=== PATIENT | male | born 1955 | race Caucasian/White ===

== ENCOUNTER 2022-01-06 10:37 | Outpatient (REF) | payer MEDICARE, SELFPAY ==
[2022-01-06 11:15] LABS: MANUAL DIFF FLAG NO
[2022-01-06 11:24] LABS: Basophils Absolute Auto 0.1 X10*3/uL (0.0-0.2); Basophils Percent Auto 0.8 % (0-2); Eosinophils Absolute Auto 0.2 X10*3/uL (0.0-0.4); Hemoglobin 13.1 g/dl (14.0-18.0); Imm Gran Abs Auto 0.03 X10*3/uL (0.00-0.03); Imm Gran Pct Auto 0.4 % (0.0-0.4); Lymphocytes Absolute Auto 1.5 X10*3/uL (1.2-4.9); Lymphocytes Percent Auto 19.9 % (20-40); Mean Corpuscular Hemoglobin 28.8 pg (27.0-33.0); Mean Corpuscular Volume 90.1 fL (80.0-98.0); Mean Platelet Volume 9.6 fL (9.4-12.4); Monocytes Absolute Auto 0.6 X10*3/uL (0.1-1.2); Monocytes Percent Auto 7.9 % (2-11); Neutrophils Absolute Auto 5.2 x10*3/uL (2.0-8.3); Platelet Count 228 X10*3/uL (160-400); Red Blood Count 4.55 X10*6/uL (4.60-5.80); Red Cell Distribution Width 13.4 % (11.0-16.0); White Blood Count 7.7 X10*3/uL (4.8-10.8)
[2022-01-06 11:33] LABS: Estimated Average Glucose 128 mg/dL; Hemoglobin A1C 149.9094 umol/L; Hemoglobin A1c % 6.1 %
[2022-01-06 12:04] LABS: Alanine Aminotransferase 20 U/L (0-40); Albumin Level 4.2 g/dL (3.5-5.0); Alkaline Phosphatase 120 U/L (39-117); Anion Gap 11 (12-20); Aspartate Amino Transferase 19 U/L (5-37); Bilirubin Total 0.5 mg/dL (0.0-1.0); Blood Urea Nitrogen 25 mg/dL (9-16); Calcium 9.2 mg/dL (8.4-10.2); Carbon Dioxide 28 mmol/L (22-29); Chloride 105 mmol/L (96-108); Cholesterol 106 mg/dL; Estimated Glomerular Filt Rate > 60; Glucose Random 117 mg/dL (60-115); Potassium 5.3 mmol/L (3.3-5.1); Sodium 139 mmol/L (135-145)
[2022-01-06 12:23] LABS: Creatinine Urine 147.93 mg/dL; Microalbum/Creatinine Ratio Ur 6.7 ug/mg cr
== END 2022-01-06 10:38 | disposition home or self-care (01) ==
LOC: HO.LAB 10:37
PROVIDERS: PCP Internal Medicine; Visit Provider Internal Medicine
DX: Z12.5 Encounter for screening for malignant neoplasm of prostate (principal); I25.10 Atherosclerotic heart disease of native coronary artery without angina pectoris; E78.00 Pure hypercholesterolemia, unspecified; E11.9 Type 2 diabetes mellitus without complications
CPT/HCPCS: 36415; 80053; 82043; 82465; 83036; 84153; 85025

== ENCOUNTER 2022-02-07 12:53 | Outpatient (RCR) | payer MEDICARE, MEDICAID, SELFPAY ==
[2022-02-07 12:15] VITALS: BP 110/64; BP 136/80; BMI 27.7
--- NOTE | 2022-02-07 14:44 | MHC.CR.ITI ---
[address] [phone] F: [phone] Please see additional notes from [facility] Initial Assessment/ITP Cardiac Rehab Initial Assessment/ITP Start: 02/04/22 11:50 Freq: Status: Active Protocol: Activity Type Activity Date Activity User E-sign Co-sign Detail Recorded Client Recorded Date Recorded By Document 02/07/22 12:15 SARAH [id number] 02/07/22 12:20 SARAH 02/07/22 12:15 Cardiac Rehab ITP Initial [Excercise] -Automotive Quality Manager Required No -Preferred Language Greek -Number of sessions approved 36 -Diagnosis CABG Z95.1 -Other Diagnosis HTN, Hyperlipideia, CAD, DM II -Comments hx of deprerssion, anxiety and insomnia [Functional Assessment] -6 Min Walk (distance in ft) 1,425 -Stress Test (Mode) walk -METS Achieved 3.07 -Resting HR 85 -Resting BP 110/64 -Resting SpO2 98 -Exercise HR 106 -Exercise BP 136/80 -Exercise SpO2 99 -RPE 11 -Dyspnea No -ECG Summary SR -Comments states has chronic back discomfort affecting his ability to exercise/walk comfortably [Pre Rehab] -Pre Rehab Home Exercise Yes -Mode walk -Exercise Minutes/Day 20 bid -Exercise Days/Week 7 -Intensity moderate -Comments states walks indoor when weather is too hot -Risk Stratification: Intermediate Functional Risk Participants capacity < 5-6 METs,Mild to moderate depressed LV function (EF 31 -49%) -Fall Risk No -Assistive Devices None -Comments lightheaded when changing position too quickly [Exercise Plan] [Intervention] -Exercise Prescription NuStep, Recumbent Bike, Recumbent Elliptical, Treadmill,UBE, Upright Bike, Weights -Duration Intensity 36 Sessions -Frequency 2-3x/week -Angina with Exercise No [Exercise Education] -Exercise Education Exercise orientation, Exercise safety ,Home exercise, RPE,Self pulse checking,Signs and symptoms, Warmup/cooldown -Date Completed 02/07/22 -Initials ja -Education Summary uses automated bp cuff and SpO2 monitor for pulse checks [Exercise Goals] -Exercise Most Days of the Week Yes -Exercise 30-45 mins/day Yes -Target HR Range +20 - +30 beats above resting -Increase METS next 30 days 0.5-1.0 METS Every two weeks -METs goal by Discharge 5 METS -Comments 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 would like to become more fit . [Nutrition] [Hyperlipidemia] -Hyperlipidemia Yes -Lipid Draw Date 01/06/22 -Total Cholesterol 106 [Diabetes] -Diabetes Yes -Diabetes Type 2 -Are lab results available Yes -HbA1C 6.10 -Date 01/06/22 -Monitors Glucose Yes -Frequency bid [Weight Management] -Height 6 ft -Weight 93 kg -BMI 27.7 -Recommended Diet low fat, no salt -Comments given Dash diet pamphlet [Drug/Alchohol Use] -Drug/Alcohol Use No: denies alcohol -Comment did drink hard liquor (vodka) when taking care of failing parents as stress management tool . Discussed alcohol as a depressant and counter to his needs when feeling depressed. agrees and states no longer drinks at all. [Nutritional Screen (Rate Your Plate)] -Score 61 -Interpretation of Score making many healthy choices -Comments has lost 10 lbs since hospitalization (Dischgd december) [Nutrition Plan] [Intervention] -Referral(s) Not Applicable [Nutrition Education] -Nutrition Education Diabetes and excercise, Hydration, Nutrition, Reading food labels,Signs and symptoms of Hypo/Hyper- glycemia -Date Completed 02/07/22 -Initials ja -Education Summary sister provides meal prep. given pamphlet re: food labels , as well as dash diet handout. [Nutrition Goals] -Goals BMI < 25, Fasting BG 80- 120 mg/dL,HDL > 40,LDL < 70, Total CHOL < 200 -Weight goal 195 [Psycho/Social] -Stage of Change Maintenance -Learning Barriers None -Occupation Retired -Job Description [employer] -PHQ9 Score 7 -Interpretation of Score at risk for depression -Comments states gets depressed (more so in the morning) as day goes on becomes occupied with other things and depression lessens. -Patient Self-Reports Depression Yes -Family Support sister+ -Comments lives with sister and her family until he is more able to care for himself. (has an apartment) [Psycho/Social Plan] [Intervention] -Referral(s) No consult needed [Psycho/Social Education] -Psycho/Social Education Advanced directives, Coping techniques, Depression and CAD,Positive support system, Relaxation Techniques, Reviewed PHQ9 Score w/pt, Sexuality and CAD,Signs and symptoms of CAD ,Stress management -Date Completed 02/07/22 -Initials ja -Education Summary hx of insomnia was taking remeron but trying to minimize use. started on zoloft daily relaxes by walking, reading, watching tv, keep moving [Psycho/Social Goals] -Goals Improve depression screen score, Improve depressive symptoms,Manage /reduce stress, Not Applicable [Other Core Comp] [Risk Factors] -Risk Factors Diabetes, Dyslipidemia, Hypertension, Physical Inactivity [Hypertension] -Hypertention Yes -Resting BP: 110/64 [Tobacco Use] -Patient Tobacco Use Status Never used Tobacco -Exposure to secondhand smoke No [Heart Failure] -Heart Failure No [Other Core Comp Plan] [Intervention] -Referral(s) Recognizing Stressors,Self Monitoring BP, Stress Management [Other Core Comp Education] -Other Core Comp Education HF Disease progression, Medication compliance,Risk factor modifications, RPD Scale/SOB management, Understanding hypertension -Date Completed 02/07/22 -Initials ja -Education Summary states compliant with medication regimen [Other Core Comp Goals] -Goals Improve dyspnea ,Manage risk factors, Medication compliance, Resting BP < 130/80 [Medication Plan] [Intervention] -Medications Acetaminophen 975 mg q6h prn pain ASA 81 mg daily Atorvastatin 80 mg daily Clopidogrel 75 mg po daily Furosemide 40 mg daily Metformin 500 mg daily Metformin ER 50 mg daily Olanzepine 2.5 mg daily zoloft 50 mg daily -Compliance Patient reports compliance w/ prescribed meds [Medication Education] -Education Importance of medication compliance, Medication purpose, Medication schedule, Medication side effects -Date Completed 02/07/22 -Initials ja -Education Summary states compliant with medication regimen [Medication Goals] -Goals Adherence to medication compliance -Comments states compliant with medication regimen [Treatment Times] -Rehab Services with ECG Monitor -Time 1300 -End Time 1162
[2022-03-08 07:09] VITALS: BP 104/68; BMI 28.8
--- NOTE | 2022-03-08 07:31 | MHC.CR.ITR ---
[address] [phone] F: [phone] Please see additional notes from [facility] Reassessment/ITP Cardiac Rehab Reassessment/ITP Start: 02/04/22 11:50 Freq: Status: Active Protocol: Activity Type Activity Date Activity User E-sign Co-sign Detail Recorded Client Recorded Date Recorded By Document 03/08/22 07:09 SARAH [id number] 03/08/22 07:31 SARAH 03/08/22 07:09 Cardiac Rehab Reassessment/ITP [Exercise] -Sharepoint Application Developer Required No -Preferred Language Polish -Progress Note Type 30-Day Note -Total Sessions Attended 5 -Comments hx of deprerssion, anxiety and insomnia has increased intensity and duration of workout with guidance, supervision and encouragement. [Functional Assessment] -ECG Summary SR -Home-Based Rehab Pt approved for home-based exercise -Comments takes daily walks (slow paced) for short periods of time due to back discomfort . -Fall Risk No [Exercise Plan] [Intervention] -Exercise Prescription NuStep, Recumbent Bike, Recumbent Elliptical, Treadmill,UBE, Upright Bike, Weights -Duration Intensity 36 Sessions -Exercise Minutes/Day 30 -Exercise Days/Week 5 -Angina with Exercise No -Peak METs 5 [Home Exercise] -Mode walks -Frequency bid -Intensity light -Comments states due to back pain walks at slow pace for 20+ minutes bid. 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 would like to become more fit . [Nutrition] [Hyperlipidemia] -Are lab results available Yes -Hyperlipidemia Yes -Medication Changes No -Comments 02/16/2022 Cholesterol- 116 Triglycerides- 117 LDL- 56 HDL- 37 [Diabetes] -Diabetes Yes -Diabetes Type 2 -HbA1C 6.20 -Date 02/16/22 [Weight Management] -Weight 96.5 kg -BMI 28.8 -Comments given Dash diet pamphlet [Drug/Alchohol Use] -Drug/Alcohol Use No: denies alcohol use -Change in Use No -Comment did drink hard liquor (vodka) when taking care of failing parents as stress management tool . Discussed alcohol as a depressant and counter to his needs when feeling depressed. agrees and states no longer drinks at all. [Nutrition Plan] [Intervention] -Attended Nutrition Brochures [Nutrition Education] -Nutrition Education Diabetes and excercise, Hydration, Nutrition, Reading food labels,Signs and symptoms of Hypo/Hyper- glycemia -Date Completed 02/07/22 -Initials ja -Education Summary sister provides meal prep. given pamphlet re: food labels , as well as dash diet handout. denies questions or concerns at this time. [Nutrition Goals] -Goals BMI < 25, Fasting BG 80- 120 mg/dL,HDL > 40,LDL < 70, Total CHOL < 200 -Weight goal 195 [Psycho/Social] -Stage of Change Maintenance -Occupation Retired -PHQ9 Score 7 -Interpretation of Score at risk for depression -Plan of Action/Follow-up PCP faxed results of PHQ9 at time of admission. -Patient Self-Reports Depression Yes -Comments states gets depressed (more so in the morning) as day goes on becomes occupied with other things and depression lessens. [Psycho/Social Plan] [Intervention] -Attended No consult needed [Psycho/Social Education] -Psycho/Social Education Advanced directives, Coping techniques, Depression and CAD,Positive support system, Relaxation Techniques, Reviewed PHQ9 Score w/pt, Sexuality and CAD,Signs and symptoms of CAD ,Stress management -Date Completed 02/07/22 -Initials ja -Education Summary hx of insomnia was taking remeron but trying to minimize use. started on zoloft daily relaxes by walking, reading, watching tv, keep moving [Psycho/Social Goals] -Goals Improve depression screen score, Improve depressive symptoms,Manage /reduce stress, Not Applicable -Comments affect remains flat. [Other Core Comp] [Hypertension] -Hypertention Yes -Resting BP: 104/68 -Medication Changes No [Tobacco Use] -Change in Use No [Heart Failure] -Heart Failure No [Other Core Comp Plan] [Intervention] -Attended Recognizing Stressors,Self Monitoring BP, Stress Management [Other Core Comp Education] -Other Core Comp Education HF Disease progression, Medication compliance,Risk factor modifications, RPD Scale/SOB management, Understanding hypertension -Date Completed 02/07/22 -Initials ja -Education Summary states compliant with medication regimen [Other Core Comp Goals] -Goals Improve dyspnea ,Manage risk factors, Medication compliance, Resting BP < 130/80 [Medication Plan] [Intervention] -Medications Acetaminophen 975 mg q6h prn pain ASA 81 mg daily Atorvastatin 80 mg daily Clopidogrel 75 mg po daily Furosemide 40 mg daily Metformin 500 mg daily Metformin ER 50 mg daily Olanzepine 2.5 mg daily zoloft 50 mg daily -Compliance Patient reports compliance w/ prescribed meds [Medication Education] -Education Importance of medication compliance, Medication purpose, Medication schedule, Medication side effects -Date Completed 02/07/22 -Initials ja -Education Summary states compliant with medication regimen [Medication Goals] -Goals Adherence to medication compliance -Comments states compliant with medication regimen
[2022-04-06 07:29] VITALS: BP 104/68; BMI 28.8
--- NOTE | 2022-04-06 07:32 | MHC.CR.ITR ---
[address] [phone] F: [phone] Please see additional notes from [facility] Reassessment/ITP Cardiac Rehab Reassessment/ITP Start: 02/04/22 11:50 Freq: Status: Active Protocol: Activity Type Activity Date Activity User E-sign Co-sign Detail Recorded Client Recorded Date Recorded By Document 04/06/22 07:29 SARAH Desktop 04/06/22 07:31 SARAH 04/06/22 07:29 Cardiac Rehab Reassessment/ITP [Exercise] -Rn Behavioral Health Required No -Preferred Language Latvian -Progress Note Type 60-Day Note -Total Sessions Attended 5 -Comments has not attended since 02/21/22. states has been having back pain and plans to return to [facility] when able. hx of deprerssion, anxiety and insomnia has increased intensity and duration of workout with guidance, supervision and encouragement. [Functional Assessment] -ECG Summary SR -Home-Based Rehab Pt approved for home-based exercise -Comments takes daily walks (slow paced) for short periods of time due to back discomfort . -Fall Risk No [Exercise Plan] [Intervention] -Exercise Prescription NuStep, Recumbent Bike, Recumbent Elliptical, Treadmill,UBE, Upright Bike, Weights -Duration Intensity 36 Sessions -Exercise Minutes/Day 30 -Exercise Days/Week 5 -Angina with Exercise No -Peak METs 5 [Home Exercise] -Mode walks -Frequency bid -Intensity light -Comments states due to back pain walks at slow pace for 20+ minutes bid. 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 would like to become more fit . [Nutrition] [Hyperlipidemia] -Are lab results available Yes -Hyperlipidemia Yes -Medication Changes No -Comments 02/16/2022 Cholesterol- 116 Triglycerides- 117 LDL- 56 HDL- 37 [Diabetes] -Diabetes Yes -Diabetes Type 2 -HbA1C 6.20 -Date 02/16/22 [Weight Management] -Weight 96.5 kg -BMI 28.8 -Comments given Dash diet pamphlet [Drug/Alchohol Use] -Drug/Alcohol Use No: denies alcohol use -Change in Use No -Comment did drink hard liquor (vodka) when taking care of failing parents as stress management tool . Discussed alcohol as a depressant and counter to his needs when feeling depressed. agrees and states no longer drinks at all. [Nutrition Plan] [Intervention] -Attended Nutrition Brochures [Nutrition Education] -Nutrition Education Diabetes and excercise, Hydration, Nutrition, Reading food labels,Signs and symptoms of Hypo/Hyper- glycemia -Date Completed 02/07/22 -Initials ja -Education Summary sister provides meal prep. given pamphlet re: food labels , as well as dash diet handout. denies questions or concerns at this time. [Nutrition Goals] -Goals BMI < 25, Fasting BG 80- 120 mg/dL,HDL > 40,LDL < 70, Total CHOL < 200 -Weight goal 195 [Psycho/Social] -Stage of Change Maintenance -Occupation Retired -PHQ9 Score 7 -Interpretation of Score at risk for depression -Plan of Action/Follow-up PCP faxed results of PHQ9 at time of admission. -Patient Self-Reports Depression Yes -Comments states gets depressed (more so in the morning) as day goes on becomes occupied with other things and depression lessens. [Psycho/Social Plan] [Intervention] -Attended No consult needed [Psycho/Social Education] -Psycho/Social Education Advanced directives, Coping techniques, Depression and CAD,Positive support system, Relaxation Techniques, Reviewed PHQ9 Score w/pt, Sexuality and CAD,Signs and symptoms of CAD ,Stress management -Date Completed 02/07/22 -Initials ja -Education Summary hx of insomnia was taking remeron but trying to minimize use. started on zoloft daily relaxes by walking, reading, watching tv, keep moving [Psycho/Social Goals] -Goals Improve depression screen score, Improve depressive symptoms,Manage /reduce stress, Not Applicable -Comments affect remains flat. [Other Core Comp] [Hypertension] -Hypertention Yes -Resting BP: 104/68 -Medication Changes No [Tobacco Use] -Change in Use No [Heart Failure] -Heart Failure No [Other Core Comp Plan] [Intervention] -Attended Recognizing Stressors,Self Monitoring BP, Stress Management [Other Core Comp Education] -Other Core Comp Education HF Disease progression, Medication compliance,Risk factor modifications, RPD Scale/SOB management, Understanding hypertension -Date Completed 02/07/22 -Initials ja -Education Summary states compliant with medication regimen [Other Core Comp Goals] -Goals Improve dyspnea ,Manage risk factors, Medication compliance, Resting BP < 130/80 [Medication Plan] [Intervention] -Medications Acetaminophen 975 mg q6h prn pain ASA 81 mg daily Atorvastatin 80 mg daily Clopidogrel 75 mg po daily Furosemide 40 mg daily Metformin 500 mg daily Metformin ER 50 mg daily Olanzepine 2.5 mg daily zoloft 50 mg daily -Compliance Patient reports compliance w/ prescribed meds [Medication Education] -Education Importance of medication compliance, Medication purpose, Medication schedule, Medication side effects -Date Completed 02/07/22 -Initials ja -Education Summary states compliant with medication regimen [Medication Goals] -Goals Adherence to medication compliance -Comments states compliant with medication regimen
[2022-05-03 07:00] VITALS: BP 104/68; BMI 28.8
[2022-05-24 08:47] VITALS: BP 104/68; BMI 28.8
--- NOTE | 2022-05-24 08:48 | MHC.CR.ITR ---
[address] [phone] F: [phone] Please see additional notes from [facility] Reassessment/ITP Cardiac Rehab Reassessment/ITP Start: 02/04/22 11:50 Freq: Status: Active Protocol: Activity Type Activity Date Activity User E-sign Co-sign Detail Recorded Client Recorded Date Recorded By Document 05/24/22 08:47 SARAH [id number] 05/24/22 08:48 SARAH 05/24/22 08:47 Cardiac Rehab Reassessment/ITP [Exercise] -Manager Marketing Communications Required No -Preferred Language Lao -Progress Note Type 90-Day Note -Total Sessions Attended 5 -Comments has not attended [facility] since 02/21/22. states has been having back pain and plans to return to [facility] when able. Wellness call placed 04/27/22 stated he continues to be experiencing back pain (has been seen by PCP) and plans to return to [facility] when pain is manageable., hx of depression, anxiety and insomnia has increased intensity and duration of workout with guidance, supervision and encouragement. [Functional Assessment] -ECG Summary SR -Home-Based Rehab Pt approved for home-based exercise -Comments takes daily walks (slow paced) for short periods of time due to back discomfort . -Fall Risk No [Exercise Plan] [Intervention] -Exercise Prescription NuStep, Recumbent Bike, Recumbent Elliptical, Treadmill,UBE, Upright Bike, Weights -Duration Intensity 36 Sessions -Exercise Minutes/Day 30 -Exercise Days/Week 5 -Angina with Exercise No -Peak METs 5 [Home Exercise] -Mode walks -Frequency bid -Intensity light -Comments states due to back pain walks at slow pace for 20+ minutes bid. 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 would like to become more fit . [Nutrition] [Hyperlipidemia] -Are lab results available Yes -Hyperlipidemia Yes -Medication Changes No -Comments 02/16/2022 Cholesterol- 116 Triglycerides- 117 LDL- 56 HDL- 37 [Diabetes] -Diabetes Yes -Diabetes Type 2 -HbA1C 6.20 -Date 02/16/22 [Weight Management] -Weight 96.5 kg -BMI 28.8 -Comments given Dash diet pamphlet [Drug/Alchohol Use] -Drug/Alcohol Use No: denies alcohol use -Change in Use No -Comment did drink hard liquor (vodka) when taking care of failing parents as stress management tool . Discussed alcohol as a depressant and counter to his needs when feeling depressed. agrees and states no longer drinks at all. [Nutrition Plan] [Intervention] -Attended Nutrition Brochures [Nutrition Education] -Nutrition Education Diabetes and excercise, Hydration, Nutrition, Reading food labels,Signs and symptoms of Hypo/Hyper- glycemia -Date Completed 02/07/22 -Initials ja -Education Summary sister provides meal prep. given pamphlet re: food labels , as well as dash diet handout. denies questions or concerns at this time. [Nutrition Goals] -Goals BMI < 25, Fasting BG 80- 120 mg/dL,HDL > 40,LDL < 70, Total CHOL < 200 -Weight goal 195 [Psycho/Social] -Stage of Change Maintenance -Occupation Retired -PHQ9 Score 7 -Interpretation of Score at risk for depression -Plan of Action/Follow-up PCP faxed results of PHQ9 at time of admission. -Patient Self-Reports Depression Yes -Comments states gets depressed (more so in the morning) as day goes on becomes occupied with other things and depression lessens. [Psycho/Social Plan] [Intervention] -Attended No consult needed [Psycho/Social Education] -Psycho/Social Education Advanced directives, Coping techniques, Depression and CAD,Positive support system, Relaxation Techniques, Reviewed PHQ9 Score w/pt, Sexuality and CAD,Signs and symptoms of CAD ,Stress management -Date Completed 02/07/22 -Initials ja -Education Summary hx of insomnia was taking remeron but trying to minimize use. started on zoloft daily relaxes by walking, reading, watching tv, keep moving [Psycho/Social Goals] -Goals Improve depression screen score, Improve depressive symptoms,Manage /reduce stress, Not Applicable -Comments affect remains flat. [Other Core Comp] [Hypertension] -Hypertention Yes -Resting BP: 104/68 -Medication Changes No [Tobacco Use] -Change in Use No [Heart Failure] -Heart Failure No [Other Core Comp Plan] [Intervention] -Attended Recognizing Stressors,Self Monitoring BP, Stress Management [Other Core Comp Education] -Other Core Comp Education HF Disease progression, Medication compliance,Risk factor modifications, RPD Scale/SOB management, Understanding hypertension -Date Completed 02/07/22 -Initials ja -Education Summary states compliant with medication regimen [Other Core Comp Goals] -Goals Improve dyspnea ,Manage risk factors, Medication compliance, Resting BP < 130/80 [Medication Plan] [Intervention] -Medications Acetaminophen 975 mg q6h prn pain ASA 81 mg daily Atorvastatin 80 mg daily Clopidogrel 75 mg po daily Furosemide 40 mg daily Metformin 500 mg daily Metformin ER 50 mg daily Olanzepine 2.5 mg daily zoloft 50 mg daily -Compliance Patient reports compliance w/ prescribed meds [Medication Education] -Education Importance of medication compliance, Medication purpose, Medication schedule, Medication side effects -Date Completed 02/07/22 -Initials ja -Education Summary states compliant with medication regimen [Medication Goals] -Goals Adherence to medication compliance -Comments states compliant with medication regimen
[2022-06-28 08:26] VITALS: BP 104/68; BMI 28.8
--- NOTE | 2022-06-28 08:34 | MHC.CR.ITR ---
[address] [phone] F: [phone] Please see additional notes from [facility] Reassessment/ITP Cardiac Rehab Reassessment/ITP Start: 02/04/22 11:50 Freq: Status: Active Protocol: Activity Type Activity Date Activity User E-sign Co-sign Detail Recorded Client Recorded Date Recorded By Document 06/28/22 08:26 SARAH [id number] 06/28/22 08:27 SARAH 06/28/22 08:26 Cardiac Rehab Reassessment/ITP [Exercise] -Head Well Puller Required No -Preferred Language Polish -Total Sessions Attended 5 -Comments This is Anthony 's 150 day progress note. has not attended RC since 02/21/22. states has been having back pain and plans to return to CR when able. Wellness call placed AND stated he continues to be experiencing back pain (has been seen by PCP) and plans to return to CR when pain is manageable., hx of depression, anxiety and insomnia has increased intensity and duration of workout with guidance, supervision and encouragement. [Functional Assessment] -ECG Summary SR -Home-Based Rehab Pt approved for home-based exercise -Comments takes daily walks (slow paced) for short periods of time due to back discomfort . -Fall Risk No [Exercise Plan] [Intervention] -Exercise Prescription NuStep, Recumbent Bike, Recumbent Elliptical, Treadmill,UBE, Upright Bike, Weights -Duration Intensity 36 Sessions -Exercise Minutes/Day 30 -Exercise Days/Week 5 -Angina with Exercise No -Peak METs 5 [Home Exercise] -Mode walks -Frequency bid -Intensity light -Comments states due to back pain walks at slow pace for 20+ minutes bid. 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 would like to become more fit . [Nutrition] [Hyperlipidemia] -Are lab results available Yes -Hyperlipidemia Yes -Medication Changes No -Comments 02/16/2022 Cholesterol- 116 Triglycerides- 117 LDL- 56 HDL- 37 [Diabetes] -Diabetes Yes -Diabetes Type 2 -HbA1C 6.20 -Date 02/16/22 [Weight Management] -Weight 96.5 kg -BMI 28.8 -Comments given Dash diet pamphlet [Drug/Alchohol Use] -Drug/Alcohol Use No: denies alcohol use -Change in Use No -Comment did drink hard liquor (vodka) when taking care of failing parents as stress management tool . Discussed alcohol as a depressant and counter to his needs when feeling depressed. agrees and states no longer drinks at all. [Nutrition Plan] [Intervention] -Attended Nutrition Brochures [Nutrition Education] -Nutrition Education Diabetes and excercise, Hydration, Nutrition, Reading food labels,Signs and symptoms of Hypo/Hyper- glycemia -Date Completed 02/07/22 -Initials ja -Education Summary sister provides meal prep. given pamphlet re: food labels , as well as dash diet handout. denies questions or concerns at this time. [Nutrition Goals] -Goals BMI < 25, Fasting BG 80- 120 mg/dL,HDL > 40,LDL < 70, Total CHOL < 200 -Weight goal 195 [Psycho/Social] -Stage of Change Maintenance -Occupation Retired -PHQ9 Score 7 -Interpretation of Score at risk for depression -Plan of Action/Follow-up PCP faxed results of PHQ9 at time of admission. -Patient Self-Reports Depression Yes -Comments states gets depressed (more so in the morning) as day goes on becomes occupied with other things and depression lessens. [Psycho/Social Plan] [Intervention] -Attended No consult needed [Psycho/Social Education] -Psycho/Social Education Advanced directives, Coping techniques, Depression and CAD,Positive support system, Relaxation Techniques, Reviewed PHQ9 Score w/pt, Sexuality and CAD,Signs and symptoms of CAD ,Stress management -Date Completed 02/07/22 -Initials ja -Education Summary hx of insomnia was taking remeron but trying to minimize use. started on zoloft daily relaxes by walking, reading, watching tv, keep moving [Psycho/Social Goals] -Goals Improve depression screen score, Improve depressive symptoms,Manage /reduce stress, Not Applicable -Comments affect remains flat. [Other Core Comp] [Hypertension] -Hypertention Yes -Resting BP: 104/68 -Medication Changes No [Tobacco Use] -Change in Use No [Heart Failure] -Heart Failure No [Other Core Comp Plan] [Intervention] -Attended Recognizing Stressors,Self Monitoring BP, Stress Management [Other Core Comp Education] -Other Core Comp Education HF Disease progression, Medication compliance,Risk factor modifications, RPD Scale/SOB management, Understanding hypertension -Date Completed 02/07/22 -Initials ja -Education Summary states compliant with medication regimen [Other Core Comp Goals] -Goals Improve dyspnea ,Manage risk factors, Medication compliance, Resting BP < 130/80 [Medication Plan] [Intervention] -Medications Acetaminophen 975 mg q6h prn pain ASA 81 mg daily Atorvastatin 80 mg daily Clopidogrel 75 mg po daily Furosemide 40 mg daily Metformin 500 mg daily Metformin ER 50 mg daily Olanzepine 2.5 mg daily zoloft 50 mg daily -Compliance Patient reports compliance w/ prescribed meds [Medication Education] -Education Importance of medication compliance, Medication purpose, Medication schedule, Medication side effects -Date Completed 02/07/22 -Initials ja -Education Summary states compliant with medication regimen [Medication Goals] -Goals Adherence to medication compliance -Comments states compliant with medication regimen
[2022-08-02 09:43] VITALS: BP 104/68; BMI 28.8
--- NOTE | 2022-08-02 09:43 | MHC.CR.ITR ---
[address] [phone] F: [phone] Please see additional notes from [facility] Cardiac Rehab Reassessment/ITP Cardiac Rehab Reassessment/ITP Start: 02/04/22 11:50 Freq: Status: Active Protocol: Activity Type Activity Date Activity User E-sign Co-sign Detail Recorded Client Recorded Date Recorded By Document 08/02/22 09:43 SARAH [id number] 08/02/22 09:43 SARAH 08/02/22 09:43 Cardiac Rehab Reassessment/ITP [Exercise] -Tire Finisher Required No -Preferred Language Turkmen -Total Sessions Attended 5 -Comments This is Anthony 's 180 day progress note. has not attended RC since 02/21/22. states has been having back pain and plans to return to CR when able. Wellness call placed AND stated he continues to be experiencing back pain (has been seen by PCP) and plans to return to CR when pain is manageable., hx of depression, anxiety and insomnia has increased intensity and duration of workout with guidance, supervision and encouragement. [Functional Assessment] -ECG Summary SR -Home-Based Rehab Pt approved for home-based exercise -Comments takes daily walks (slow paced) for short periods of time due to back discomfort . -Fall Risk No [Exercise Plan] [Intervention] -Exercise Prescription NuStep, Recumbent Bike, Recumbent Elliptical, Treadmill,UBE, Upright Bike, Weights -Duration Intensity 36 Sessions -Exercise Minutes/Day 30 -Exercise Days/Week 5 -Angina with Exercise No -Peak METs 5 [Home Exercise] -Mode walks -Frequency bid -Intensity light -Comments states due to back pain walks at slow pace for 20+ minutes bid. 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 would like to become more fit . [Nutrition] [Hyperlipidemia] -Are lab results available Yes -Hyperlipidemia Yes -Medication Changes No -Comments 02/16/2022 Cholesterol- 116 Triglycerides- 117 LDL- 56 HDL- 37 [Diabetes] -Diabetes Yes -Diabetes Type 2 -HbA1C 6.20 -Date 02/16/22 [Weight Management] -Weight 96.5 kg -BMI 28.8 -Comments given Dash diet pamphlet [Drug/Alchohol Use] -Drug/Alcohol Use No: denies alcohol use -Change in Use No -Comment did drink hard liquor (vodka) when taking care of failing parents as stress management tool . Discussed alcohol as a depressant and counter to his needs when feeling depressed. agrees and states no longer drinks at all. [Nutrition Plan] [Intervention] -Attended Nutrition Brochures [Nutrition Education] -Nutrition Education Diabetes and excercise, Hydration, Nutrition, Reading food labels,Signs and symptoms of Hypo/Hyper- glycemia -Date Completed 02/07/22 -Initials ja -Education Summary sister provides meal prep. given pamphlet re: food labels , as well as dash diet handout. denies questions or concerns at this time. [Nutrition Goals] -Goals BMI < 25, Fasting BG 80- 120 mg/dL,HDL > 40,LDL < 70, Total CHOL < 200 -Weight goal 195 [Psycho/Social] -Stage of Change Maintenance -Occupation Retired -PHQ9 Score 7 -Interpretation of Score at risk for depression -Plan of Action/Follow-up PCP faxed results of PHQ9 at time of admission. -Patient Self-Reports Depression Yes -Comments states gets depressed (more so in the morning) as day goes on becomes occupied with other things and depression lessens. [Psycho/Social Plan] [Intervention] -Attended No consult needed [Psycho/Social Education] -Psycho/Social Education Advanced directives, Coping techniques, Depression and CAD,Positive support system, Relaxation Techniques, Reviewed PHQ9 Score w/pt, Sexuality and CAD,Signs and symptoms of CAD ,Stress management -Date Completed 02/07/22 -Initials ja -Education Summary hx of insomnia was taking remeron but trying to minimize use. started on zoloft daily relaxes by walking, reading, watching tv, keep moving [Psycho/Social Goals] -Goals Improve depression screen score, Improve depressive symptoms,Manage /reduce stress, Not Applicable -Comments affect remains flat. [Other Core Comp] [Hypertension] -Hypertention Yes -Resting BP: 104/68 -Medication Changes No [Tobacco Use] -Change in Use No [Heart Failure] -Heart Failure No [Other Core Comp Plan] [Intervention] -Attended Recognizing Stressors,Self Monitoring BP, Stress Management [Other Core Comp Education] -Other Core Comp Education HF Disease progression, Medication compliance,Risk factor modifications, RPD Scale/SOB management, Understanding hypertension -Date Completed 02/07/22 -Initials ja -Education Summary states compliant with medication regimen [Other Core Comp Goals] -Goals Improve dyspnea ,Manage risk factors, Medication compliance, Resting BP < 130/80 [Medication Plan] [Intervention] -Medications Acetaminophen 975 mg q6h prn pain ASA 81 mg daily Atorvastatin 80 mg daily Clopidogrel 75 mg po daily Furosemide 40 mg daily Metformin 500 mg daily Metformin ER 50 mg daily Olanzepine 2.5 mg daily zoloft 50 mg daily -Compliance Patient reports compliance w/ prescribed meds [Medication Education] -Education Importance of medication compliance, Medication purpose, Medication schedule, Medication side effects -Date Completed 02/07/22 -Initials ja -Education Summary states compliant with medication regimen [Medication Goals] -Goals Adherence to medication compliance -Comments states compliant with medication regimen
[2022-08-30 09:21] VITALS: BP 104/68; BMI 28.8
--- NOTE | 2022-08-30 09:22 | MHC.CR.ITD ---
[address] [phone] F: [phone] Please see additional notes from [facility] Cardiac Rehab Discharge/ITP Cardiac Rehab Discharge/ITP Start: 02/04/22 11:50 Freq: Status: Active Protocol: Activity Type Activity Date Activity User E-sign Co-sign Detail Recorded Client Recorded Date Recorded By Document 08/30/22 09:21 SARAH Desktop 08/30/22 09:22 SARAH 08/30/22 09:21 Cardiac Rehab Discharge/ITP [Exercise] -Pediatric Anesthesiologist Required No -Preferred Language Cambodian -Total Sessions Attended 5 -Comments This is Anthony 's Discharge progress note. has not attended RC since 02/21/22. states has been having back pain and plans to return to CR when able. Wellness call placed AND stated he continues to be experiencing back pain (has been seen by PCP) and plans to return to CR when pain is manageable., hx of depression, anxiety and insomnia has increased intensity and duration of workout with guidance, supervision and encouragement. [Functional Assessment] -ECG Summary SR -Fall Risk No [Exercise Plan] [Intervention] -Exercise Prescription NuStep, Recumbent Bike, Recumbent Elliptical, Treadmill,UBE, Upright Bike, Weights -Duration Intensity 36 Sessions -Exercise Minutes/Day 30 -Exercise Days/Week 5 -Angina with Exercise No -Peak METs 5 [Home Exercise] -Mode walks -Frequency bid -Intensity light -Comments states due to back pain walks at slow pace for 20+ minutes bid. 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 would like to become more fit . [Nutrition] [Hyperlipidemia] -Are lab results available Yes -Hyperlipidemia Yes -Lipid Draw Date 01/06/22 -Total Cholesterol 106 -Comments 02/16/2022 Cholesterol- 116 Triglycerides- 117 LDL- 56 HDL- 37 [Diabetes] -Diabetes Yes -Diabetes Type 2 -HbA1C 6.20 -Date 02/16/22 [Weight Management] -Weight 96.5 kg -BMI 28.8 -Comments given Dash diet pamphlet [Drug/Alchohol Use] -Drug/Alcohol Use No: denies alcohol use -Change in Use No -Comment did drink hard liquor (vodka) when taking care of failing parents as stress management tool . Discussed alcohol as a depressant and counter to his needs when feeling depressed. agrees and states no longer drinks at all. [Nutrition Plan] [Intervention] -Attended Nutrition Brochures [Nutrition Education] -Nutrition Education Diabetes and excercise, Hydration, Nutrition, Reading food labels,Signs and symptoms of Hypo/Hyper- glycemia -Date Completed 02/07/22 -Initials ja -Education Summary sister provides meal prep. given pamphlet re: food labels , as well as dash diet handout. denies questions or concerns at this time. [Nutrition Goals] -Goals BMI < 25, Fasting BG 80- 120 mg/dL,HDL > 40,LDL < 70, Total CHOL < 200 -Weight goal 195 [Psycho/Social] -Stage of Change Maintenance -Occupation Retired -PHQ9 Score 7 -Interpretation of Score at risk for depression -Plan of Action/Follow-up PCP faxed results of PHQ9 at time of admission. -Patient Self-Reports Depression Yes -Comments states gets depressed (more so in the morning) as day goes on becomes occupied with other things and depression lessens. [Psycho/Social Plan] [Intervention] -Attended No consult needed [Psycho/Social Education] -Psycho/Social Education Advanced directives, Coping techniques, Depression and CAD,Positive support system, Relaxation Techniques, Reviewed PHQ9 Score w/pt, Sexuality and CAD,Signs and symptoms of CAD ,Stress management -Date Completed 02/07/22 -Initials ja -Education Summary hx of insomnia was taking remeron but trying to minimize use. started on zoloft daily relaxes by walking, reading, watching tv, keep moving [Psycho/Social Goals] -Goals Improve depression screen score, Improve depressive symptoms,Manage /reduce stress, Not Applicable -Comments affect remains flat. [Other Core Comp] [Hypertension] -Hypertention Yes -Resting BP: 104/68 -Medication Changes No [Tobacco Use] -Change in Use No [Other Core Comp Plan] [Intervention] -Attended Recognizing Stressors,Self Monitoring BP, Stress Management [Other Core Comp Education] -Other Core Comp Education HF Disease progression, Medication compliance,Risk factor modifications, RPD Scale/SOB management, Understanding hypertension -Date Completed 02/07/22 -Initials ja -Education Summary states compliant with medication regimen [Other Core Comp Goals] -Goals Improve dyspnea ,Manage risk factors, Medication compliance, Resting BP < 130/80 [Medication Plan] [Intervention] -Medications Acetaminophen 975 mg q6h prn pain ASA 81 mg daily Atorvastatin 80 mg daily Clopidogrel 75 mg po daily Furosemide 40 mg daily Metformin 500 mg daily Metformin ER 50 mg daily Olanzepine 2.5 mg daily zoloft 50 mg daily -Compliance Patient reports compliance w/ prescribed meds [Medication Education] -Education Importance of medication compliance, Medication purpose, Medication schedule, Medication side effects -Date Completed 02/07/22 -Initials ja -Education Summary states compliant with medication regimen [Medication Goals] -Goals Adherence to medication compliance -Comments states compliant with medication regimen
== END 2022-09-09 10:35 | disposition home or self-care (01) ==
LOC: HO.CR 12:53
PROVIDERS: PCP Internal Medicine; Visit Provider Nurse Practitioner Family
DX: Z95.1 Presence of aortocoronary bypass graft (principal)
CPT/HCPCS: 93798

== ENCOUNTER 2022-02-16 11:40 | Outpatient (REF) | payer MEDICARE, MEDICAID, SELFPAY ==
[2022-02-16 12:01] LABS: MANUAL DIFF FLAG NO
[2022-02-16 12:26] LABS: Basophils Absolute Auto 0.1 X10*3/uL (0.0-0.2); Basophils Percent Auto 0.7 % (0-2); Eosinophils Absolute Auto 0.2 X10*3/uL (0.0-0.4); Hematocrit 43.5 % (42.0-52.0); Imm Gran Abs Auto 0.03 X10*3/uL (0.00-0.03); Imm Gran Pct Auto 0.4 % (0.0-0.4); Lymphocytes Absolute Auto 1.6 X10*3/uL (1.2-4.9); Lymphocytes Percent Auto 21.5 % (20-40); Mean Corpuscular HGB Conc 32.2 g/dl (31.0-36.0); Mean Corpuscular Hemoglobin 27.8 pg (27.0-33.0); Mean Corpuscular Volume 86.5 fL (80.0-98.0); Mean Platelet Volume 9.4 fL (9.4-12.4); Monocytes Absolute Auto 0.5 X10*3/uL (0.1-1.2); Monocytes Percent Auto 6.6 % (2-11); Neutrophils Absolute Auto 4.9 x10*3/uL (2.0-8.3); Neutrophils Percent Auto 67.8 % (45-73); Platelet Count 262 X10*3/uL (160-400); Red Blood Count 5.03 X10*6/uL (4.60-5.80); Red Cell Distribution Width 13.2 % (11.0-16.0); White Blood Count 7.2 X10*3/uL (4.8-10.8)
[2022-02-16 12:35] LABS: Estimated Average Glucose 131 mg/dL; Hemoglobin A1c % 6.2 %
[2022-02-16 12:59] LABS: Alanine Aminotransferase 28 U/L (0-40); Albumin Level 4.3 g/dL (3.5-5.0); Alkaline Phosphatase 108 U/L (39-117); Anion Gap 17 (12-20); Aspartate Amino Transferase 24 U/L (5-37); Bilirubin Total 0.8 mg/dL (0.0-1.0); Blood Urea Nitrogen 17 mg/dL (9-16); Calcium 9.4 mg/dL (8.4-10.2); Carbon Dioxide 29 mmol/L (22-29); Chloride 100 mmol/L (96-108); Estimated Glomerular Filt Rate > 60; Glucose Random 107 mg/dL (60-115); Potassium 4.9 mmol/L (3.3-5.1); Sodium 141 mmol/L (135-145); Total Protein 7.3 g/dL (6.5-8.0)
[2022-02-16 13:00] LABS: B Type Natriuretic Peptide 40 pg/mL (<100)
[2022-02-16 13:02] LABS: Cholesterol 116 mg/dL; HDL Cholesterol 37 mg/dL; LDL Cholesterol Calculated 56 mg/dl; Triglycerides 117 mg/dL
== END 2022-02-16 11:41 | disposition home or self-care (01) ==
LOC: HO.LAB 11:40
PROVIDERS: Absent Provider Internal Medicine Cardiovascular Disease; PCP Internal Medicine; Visit Provider Internal Medicine
DX: I25.10 Atherosclerotic heart disease of native coronary artery without angina pectoris (principal); I10 Essential (primary) hypertension; E11.9 Type 2 diabetes mellitus without complications
CPT/HCPCS: 36415; 80053; 80061; 83036; 83880; 85025

== ENCOUNTER 2022-03-08 12:32 | Outpatient (REF) | payer MEDICARE, MEDICAID, SELFPAY ==
[2022-02-07 12:15] VITALS: BP 110/64; BP 136/80
--- NOTE | ~2022-03-08 | XR_ITS ---
EXAMINATION: XR THORACIC SPINE CLINICAL INFORMATION: Mid thoracic back pain of several months' duration, without injury. COMPARISON: None TECHNIQUE: Frontal, lateral and swimmer's views of the thoracic spine were obtained. FINDINGS: There is mild bony demineralization. There is a slight thoracic dextroscoliosis. The thoracic disc spaces are relatively well-maintained. No acute fracture or spondylolisthesis is seen. There is multi-level mild to moderate thoracic spondylosis. The posterior elements are intact. The paravertebral soft tissues are unremarkable. XR/XR thoracic spine 3V IMPRESSION: 1. No acute fracture or spondylolisthesis is seen. 2. The thoracic disc spaces are relatively well-maintained. 3. There is multi-level mild to moderate thoracic spondylosis.
[2022-03-08 07:09] VITALS: BP 104/68; BMI 28.8
== END 2022-03-08 12:33 | disposition home or self-care (01) ==
LOC: HO.XRAY 12:32
PROVIDERS: PCP Internal Medicine; Visit Provider Internal Medicine
DX: M54.6 Pain in thoracic spine (principal)
CPT/HCPCS: 72072

== ENCOUNTER 2022-05-19 11:24 | Outpatient (REF) | payer MEDICARE, MEDICAID, SELFPAY ==
[2022-02-07 12:15] VITALS: BP 110/64; BP 136/80
[2022-05-19 11:37] LABS: MANUAL DIFF FLAG NO
[2022-05-19 12:33] LABS: Basophils Percent Auto 0.3 % (0-2); Eosinophils Absolute Auto 0.1 X10*3/uL (0.0-0.4); Eosinophils Percent Auto 1.1 % (0-4); Hematocrit 42.5 % (42.0-52.0); Imm Gran Abs Auto 0.02 X10*3/uL (0.00-0.03); Imm Gran Pct Auto 0.2 % (0.0-0.4); Lymphocytes Absolute Auto 1.9 X10*3/uL (1.2-4.9); Lymphocytes Percent Auto 21.5 % (20-40); Mean Corpuscular HGB Conc 32.9 g/dl (31.0-36.0); Mean Corpuscular Hemoglobin 28.4 pg (27.0-33.0); Mean Corpuscular Volume 86.2 fL (80.0-98.0); Mean Platelet Volume 10.3 fL (9.4-12.4); Monocytes Absolute Auto 0.5 X10*3/uL (0.1-1.2); Monocytes Percent Auto 5.9 % (2-11); Neutrophils Absolute Auto 6.3 x10*3/uL (2.0-8.3); Platelet Count 224 X10*3/uL (160-400); Red Blood Count 4.93 X10*6/uL (4.60-5.80); Red Cell Distribution Width 14.6 % (11.0-16.0); White Blood Count 8.8 X10*3/uL (4.8-10.8)
[2022-05-19 12:42] LABS: Appearance Urine Clear; Color Urine Yellow; Glucose Urine UA Negative (Negative); Leukocyte Esterase Urine Negative (Negative); Nitrite Urine Negative (Negative); PH 5.5 (5.0-9.0); Specific Gravity - Urine <= 1.005 (1.005-1.025); Urine Blood Negative (Negative); Urine Ketones Negative (Negative); Urine Protein Negative (Neg-Trace)
[2022-05-19 12:47] LABS: Bacteria Urine None Seen (None Seen); Hyaline Casts Urine 0-2 /LPF (0-2); RBC Urine 0-2 /HPF (0-2); Squamous Epithelial Cell Urine 0-2 /HPF (0-2); WBC Urine 0-5 /HPF (0-5)
[2022-05-19 12:54] LABS: Estimated Average Glucose 146 mg/dL; Hemoglobin A1c % 6.7 %
[2022-05-19 13:12] LABS: Alanine Aminotransferase 21 U/L (0-40); Albumin Level 4.4 g/dL (3.5-5.0); Alkaline Phosphatase 85 U/L (39-117); Anion Gap 16 (12-20); Aspartate Amino Transferase 22 U/L (5-37); Blood Urea Nitrogen 22 mg/dL (9-16); Calcium 9.5 mg/dL (8.4-10.2); Carbon Dioxide 26 mmol/L (22-29); Chloride 100 mmol/L (96-108); Cholesterol 122 mg/dL; Estimated Glomerular Filt Rate > 60; Glucose Fasting 114 mg/dL (60-99); HDL Cholesterol 39 mg/dL; LDL Cholesterol Calculated 59 mg/dl; Potassium 4.2 mmol/L (3.3-5.1); Sodium 138 mmol/L (135-145); Total Protein 7.1 g/dL (6.5-8.0); Triglycerides 123 mg/dL
[2022-05-19 13:34] LABS: Prostate Specific Antigen Scr 0.33 ng/mL (<0.05-4.0)
[2022-05-19 16:32] LABS: Vitamin D 25-OH Total 21.7 ng/mL (>30)
[2022-05-19 17:35] LABS: Creatinine Urine 28.84 mg/dL; Microalbumin Urine < 5.0 mg/L
== END 2022-05-19 11:25 | disposition home or self-care (01) ==
LOC: HO.LAB 11:24
PROVIDERS: PCP Internal Medicine; Visit Provider Internal Medicine
DX: Z00.00 Encounter for general adult medical examination without abnormal findings (principal); Z12.5 Encounter for screening for malignant neoplasm of prostate; I25.10 Atherosclerotic heart disease of native coronary artery without angina pectoris; E11.9 Type 2 diabetes mellitus without complications
CPT/HCPCS: 36415; 80053; 80061; 81001; 82043; 82306; 83036; 84153; 85025

== ENCOUNTER 2023-04-27 10:39 | Outpatient (REF) | payer MEDICARE, MEDICAID, SELFPAY ==
[2023-04-27 10:53] LABS: MANUAL DIFF FLAG NO
[2023-04-27 11:54] LABS: Basophils Percent Auto 0.4 % (0-2); Eosinophils Absolute Auto 0.1 X10*3/uL (0.0-0.4); Eosinophils Percent Auto 1.2 % (0-4); Hematocrit 42.6 % (42.0-52.0); Hemoglobin 14.3 g/dl (14.0-18.0); Imm Gran Abs Auto 0.03 X10*3/uL (0.00-0.03); Imm Gran Pct Auto 0.4 % (0.0-0.4); Lymphocytes Absolute Auto 1.6 X10*3/uL (1.2-4.9); Lymphocytes Percent Auto 23.3 % (20-40); Mean Corpuscular HGB Conc 33.6 g/dl (31.0-36.0); Mean Corpuscular Hemoglobin 30.3 pg (27.0-33.0); Mean Corpuscular Volume 90.3 fL (80.0-98.0); Mean Platelet Volume 9.6 fL (9.4-12.4); Monocytes Absolute Auto 0.4 X10*3/uL (0.1-1.2); Monocytes Percent Auto 6.4 % (2-11); Neutrophils Absolute Auto 4.6 x10*3/uL (2.0-8.3); Neutrophils Percent Auto 68.3 % (45-73); Platelet Count 218 X10*3/uL (160-400); Red Blood Count 4.72 X10*6/uL (4.60-5.80); Red Cell Distribution Width 12.3 % (11.0-16.0); White Blood Count 6.7 X10*3/uL (4.8-10.8)
[2023-04-27 12:01] LABS: Estimated Average Glucose 128 mg/dL; Hemoglobin A1c % 6.1 % (<6.0)
[2023-04-27 12:29] LABS: Alanine Aminotransferase 23 U/L (0-40); Albumin Level 4.3 g/dL (3.5-5.0); Alkaline Phosphatase 66 U/L (39-117); Anion Gap 13 (12-20); Aspartate Amino Transferase 23 U/L (5-37); Bilirubin Total 1.6 mg/dL (0.0-1.0); Blood Urea Nitrogen 15 mg/dL (9-16); Calcium 9.4 mg/dL (8.4-10.2); Carbon Dioxide 30 mmol/L (22-29); Chloride 103 mmol/L (96-108); Cholesterol 92 mg/dL (<200); Creatinine Urine 199.25 mg/dL; Estimated Glomerular Filt Rate > 60; Glucose Fasting 98 mg/dL (60-99); HDL Cholesterol 31 mg/dL (>40); LDL Cholesterol Calculated 39 mg/dL (<100); Microalbum/Creatinine Ratio Ur 3.5 ug/mg cr (<30); Potassium 3.9 mmol/L (3.3-5.1); Sodium 142 mmol/L (135-145); Triglycerides 112 mg/dL (<150)
[2023-04-27 12:44] LABS: Prostate Specific Antigen Scr 0.44 ng/mL (<0.05-4.0)
== END 2023-04-27 10:40 | disposition home or self-care (01) ==
LOC: HO.LAB 10:39
PROVIDERS: PCP Internal Medicine; Visit Provider Internal Medicine
DX: I25.10 Atherosclerotic heart disease of native coronary artery without angina pectoris (principal); E78.00 Pure hypercholesterolemia, unspecified; E11.9 Type 2 diabetes mellitus without complications; R35.1 Nocturia; Z12.5 Encounter for screening for malignant neoplasm of prostate
CPT/HCPCS: 36415; 80053; 80061; 82043; 82570; 83036; 84153; 85025

== ENCOUNTER 2023-07-26 16:11 | Emergency (ER) | payer MEDICARE, MEDICAID, SELFPAY ==
--- NOTE | ~2023-07-26 | US_ITS ---
EXAMINATION: US VENOUS ULTRASOUND WITH DOPPLER LOWER EXTREMITY, BILATERAL CLINICAL INFORMATION: Bilateral lower extremity pain COMPARISON: None available. TECHNIQUE: Ultrasound of the deep veins is performed from the hip to the calf with compression sonography and color and pulse Doppler assessment. Spectral analysis with color-flow imaging is performed. FINDINGS: RIGHT: There is normal venous compression and respiratory variation and augmented flow. The visualized common femoral vein, superficial femoral vein, profunda femoral vein, popliteal vein, and the trifurcation region shows no evidence of deep venous thrombosis. There is no significant popliteal fossa cyst. LEFT: There is normal venous compression and respiratory variation and augmented flow. The visualized common femoral vein, superficial femoral vein, profunda femoral vein, popliteal vein, and the trifurcation region shows no evidence of deep venous thrombosis. There is no significant popliteal fossa cyst. If the patient's symptoms persist, followup ultrasound in 5 days 7 days might be of value to exclude proximal propagation from a non-visualized calf vein. US/US venous duplex LE BI IMPRESSION: No DVT demonstrated in either lower extremity.
--- NOTE | ~2023-07-26 | US_ITS ---
EXAMINATION: NONINVASIVE ASSESSMENT OF THE ARTERIES OF BOTH LOWER EXTREMITIES INCLUDING BILATERAL LOWER EXTREMITY DUPLEX. CLINICAL INFORMATION: Cold foot after exercise, good pulses today COMPARISON: None TECHNIQUE: duplex Doppler techniques with wave form analysis and measurement of velocities in the common femoral, profunda femoral, superficial femoral, popliteal, tibial and peroneal arteries. The study was performed only at rest. FINDINGS: RIGHT LEG Common femoral artery: 156 cm/s, Multiphasic Profunda femoris artery: 89 cm/s, Multiphasic Superficial femoral artery (proximal): 106 cm/s, Multiphasic Superficial femoral artery (mid): 71 cm/s, Multiphasic Superficial femoral artery (distal): 67 cm/s, Multiphasic Proximal Popliteal artery: 70 cm/s, Multiphasic Mid posterior tibial artery: 61 cm/s, Multiphasic LEFT LEG: Common femoral artery: 105 cm/s, Multiphasic Profunda femoris artery: 137 cm/s, Multiphasic Superficial femoral artery (proximal): 93 cm/s, Multiphasic Superficial femoral artery (mid): 85 cm/s, Multiphasic Superficial femoral artery (distal): 63 cm/s, Multiphasic Proximal Popliteal artery: 81 cm/s, Multiphasic Mid posterior tibial artery: 76 cm/s, Multiphasic Peroneal artery: 76 cm/s, Multiphasic US/US arterial duplex LE BI IMPRESSION: No hemodynamically significant stenosis in bilateral lower extremities.
--- NOTE | 2023-07-26 16:19 | ED_ITS ---
HPI - Extremity Injury (Lower) General Chief Complaint: General Medical Stated Complaint: bilat foot pain Time Seen by Provider: 07/26/23 20:09 Source: patient, RN notes reviewed and old records reviewed Mode of arrival: ambulatory Limitations: no limitations History of Present Illness HPI Narrative: 67-year-old male past medical history significant for coronary artery disease presents for evaluation of foot pain. He states that he generally has pain at the right big toe when walking. He states that occasionally it is swollen. He states ?sometimes it is cool to the touch. Denies any history of DVT or PE Denies any risk factors for DVT/PE Currently he states that he has no significant pain He reports that he has dry cracked skin to the bottom of his left foot Denies any trauma to the legs Related Data Allergies Allergy/AdvReac Type Severity Reaction Status Date / Time No Known Allergies Allergy Verified 07/26/23 16:20 Review of Systems 2 Constitutional: Constitutional: Denies chills and Denies fever(s) Cardiovascular: Cardiovascular: Denies chest pain and Denies dyspnea Respiratory: Respiratory: Denies cough and Denies dyspnea Gastrointestinal: Gastrointestinal: Denies abdominal pain Musculoskeletal: Musculoskeletal: Denies back pain, Reports arthralgias and Denies joint swelling Integumentary/Breasts: Skin/Breast: Denies rash PMFSH Social History Social History Patient Tobacco Use Status: Never used Tobacco Advance Directives: No Advance Directives Information Provided: No Physical Exam 2 Vital Signs: Vital Signs: Last Vital Signs Temp 97.2 F 07/26/23 16:20 Pulse 62 07/26/23 20:20 Resp 18 07/26/23 16:20 BP 98/56 L 07/26/23 20:20 Pulse Ox 98 07/26/23 20:20 O2 Del Method Room Air 07/26/23 20:20 BMI result Body Mass Index 28.0 Const: General: healthy appearing, comfortable, no acute distress, alert and awake Nutritional Appearance: well nourished Orientation/consciousness: p atient oriented x3 HEENT: Head: Yes normocephalic and Yes atraumatic Eyes: Eyelids: Yes eyelids normal Conjunctivae: conjunctivae normal S clerae: sclerae normal Corneas: corneas normal Pupils: Equal, round and reactive pupils present EOM: EOMs intact bilaterally Neck: Neck: Yes full ROM Resp: Effort & Inspection: normal respiratory effort, able to speak in complete sentences and not labored GI: Inspection: No distended Palpation (GI): Soft to palpation, not firm, nontender, no guarding and not rigid Skin: Other: Patient has no obvious deformity to lower extremities bilaterally. No calf pain or tenderness, no significant edema. DP and PT pulses 2+ and equal. Capillary refill intact to both lower extremities General skin exam: elasticity normal Neuro: General: patient oriented x3 Cranial nerves: Yes Equal, round and reactive pupils present and Yes Bilaterally intact EOM present Cognition (Neuro): normal cognition Course Course Course Narrative: RME: 67 year-old M w/ PMHx CAD s/p bypass, pre-DM, presenting to the ED c/o bilateral foot pain > right w/blisters/swelling, & RLE cold x1 month gradually worsening. Takes ASA. States sx are worse after exercise b/l LE warm to touch, appropriate color, no pitting edema, pulse WNL. No calf ttp Labs, Arterial/venous US ordered Full HPI, ROS and PE to be performed by primary ED provider. Medical Decision Making Medical Decision Making [facility] Narrative: Patient complains of foot pain, will feet. He had workup in triage that was significant for labs, venous ultrasound to rule out DVT as well as arterial ultrasound right lower extremity as the patient reports symptoms are worse. All his results do not show any acute, concerning findings. Patient has no significant vascular stenosis Differential Diagnosis Differential Diagnoses: The differential diagnosis associated with the presentation includes Leg edema Raynaud's phenomenon Leg pain DVT Atherosclerosis Lab Data [facility] Lab Attestation statement: I reviewed the patient's lab results. No leukocytosis. The patient's labs are technically significant for a mild anemia with a hemoglobin of 13.9 and hematocrit of 40.9. However these numbers are consistent with his baseline. No significant chemistry abnormality 07/26/23 17:04 07/26/23 17:04 Labs: Lab Results 07/26/23 Range/Units 17:04 WBC 7.1 (4.8-10.8) X10*3/uL RBC 4.59 L (4.60-5.80) X10*6/uL Hgb 13.9 L (14.0-18.0) g/dl Hct 40.9 L (42.0-52.0) % MCV 89.1 (80.0-98.0) fL MCH 30.3 (27.0-33.0) pg MCHC 34.0 (31.0-36.0) g/dl RDW 12.4 (11.0-16.0) % Plt Count 233 (160-400) X10*3/uL MPV 9.6 (9.4-12.4) fL Immature Gran % (Auto) 0.3 (0.0-0.4) % Neut % (Auto) 62.5 (45-73) % Lymph % (Auto) 28.1 (20-40) % [place] % (Auto) 7.7 (2-11) % Eos % (Auto) 1.0 (0-4) % Baso % (Auto) 0.4 (0-2) % Lymph # (Auto) 2.0 (1.2-4.9) X10*3/uL [place] # (Auto) 0.5 (0.1-1.2) X10*3/uL Eos # (Auto) 0.1 (0.0-0.4) X10*3/uL Baso # (Auto) 0.0 (0.0-0.2) X10*3/uL Abs Immat Gran (auto) 0.02 (0.00-0.03) X10*3/uL Absolute Neuts (auto) 4.4 (2.0-8.3) x10*3/uL Absolute Nucleated RBC 0.000 (0.0-0.012) X10*3/uL Nucleated RBC % (auto) 0.0 (0.0-0.2) /100WBC PT 12.9 (11.1-13.3) SEC INR 1.1 (0.9-1.1) Sodium 139 (135-145) mmol/L Potassium 3.9 (3.3-5.1) mmol/L Chloride 103 (96-108) mmol/L Carbon Dioxide 26 (22-29) mmol/L Anion Gap 14 (12-20) BUN 19 H (9-16) mg/dL Creatinine 0.86 (0.5-1.4) mg/dL Estim Creat Clear Calc 98.9 Estimated GFR > 60 Random Glucose 96 (60-115) mg/dL Calcium 9.6 (8.4-10.2) mg/dL Total Bilirubin 1.1 H (0.0-1.0) mg/dL Direct Bilirubin 0.4 (0.0-0.5) mg/dL AST 24 (5-37) U/L ALT 21 (0-40) U/L Alkaline Phosphatase 72 (39-117) U/L B-Natriuretic Peptide 56 (<100) pg/mL Total Protein 6.9 (6.5-8.0) g/dL Albumin 4.3 (3.5-5.0) g/dL Radiology Impression Discussion of test interpretation with radiology: I have reviewed the radiologist's reading. (No evidence of DVT. No evidence of critical stenosis to the right lower extremity) Discharge Plan Discharge Clinical Impression: Acute foot pain Patient Disposition: Home, Self-Care Instructions: Arthralgia (ED) Additional Instructions: Your workup in the emergency room today was reassuring. This concludes your blood work, venous and arterial ultrasounds of the lower extremities. Follow-up with your primary doctor for the foot pain. Return for new or worsening symptoms Interventions: ED Discharge Assessment Last Done: 07/26/23 21:19 Discharge Date/Time: 07/26/23 21:20
[2023-07-26 16:20] VITALS: BP 107/56; PULSE 73; RESP 18; TEMP 36.2; O2SAT 99; BMI 28.0
[2023-07-26 17:08] LABS: MANUAL DIFF FLAG NO
[2023-07-26 17:12] LABS: Basophils Percent Auto 0.4 % (0-2); Eosinophils Absolute Auto 0.1 X10*3/uL (0.0-0.4); Hematocrit 40.9 % (42.0-52.0); Hemoglobin 13.9 g/dl (14.0-18.0); Imm Gran Abs Auto 0.02 X10*3/uL (0.00-0.03); Imm Gran Pct Auto 0.3 % (0.0-0.4); Lymphocytes Percent Auto 28.1 % (20-40); Mean Corpuscular Hemoglobin 30.3 pg (27.0-33.0); Mean Corpuscular Volume 89.1 fL (80.0-98.0); Mean Platelet Volume 9.6 fL (9.4-12.4); Monocytes Absolute Auto 0.5 X10*3/uL (0.1-1.2); Monocytes Percent Auto 7.7 % (2-11); Neutrophils Absolute Auto 4.4 x10*3/uL (2.0-8.3); Neutrophils Percent Auto 62.5 % (45-73); Platelet Count 233 X10*3/uL (160-400); Red Blood Count 4.59 X10*6/uL (4.60-5.80); Red Cell Distribution Width 12.4 % (11.0-16.0); White Blood Count 7.1 X10*3/uL (4.8-10.8)
[2023-07-26 17:21] LABS: INTERNATIONAL NORM RATIO 1.1 (0.9-1.1); Prothrombin Time 12.9 SEC (11.1-13.3)
[2023-07-26 17:23] LABS: Alanine Aminotransferase 21 U/L (0-40); Albumin Level 4.3 g/dL (3.5-5.0); Alkaline Phosphatase 72 U/L (39-117); Anion Gap 14 (12-20); Aspartate Amino Transferase 24 U/L (5-37); Bilirubin Direct 0.4 mg/dL (0.0-0.5); Bilirubin Total 1.1 mg/dL (0.0-1.0); Blood Urea Nitrogen 19 mg/dL (9-16); Calcium 9.6 mg/dL (8.4-10.2); Carbon Dioxide 26 mmol/L (22-29); Chloride 103 mmol/L (96-108); Creatinine Clr Calc Pharmacy 98.9; Estimated Glomerular Filt Rate > 60; Glucose Random 96 mg/dL (60-115); Potassium 3.9 mmol/L (3.3-5.1); Sodium 139 mmol/L (135-145); Total Protein 6.9 g/dL (6.5-8.0)
[2023-07-26 17:29] LABS: B Type Natriuretic Peptide 56 pg/mL (<100)
--- NOTE | 2023-07-26 20:02 | PC.NURSE ---
pt ambulatory with steady gait to room. nad.
[2023-07-26 20:20] VITALS: BP 98/56; PULSE 62; O2SAT 98
== END 2023-07-26 21:20 | disposition home or self-care (01) ==
PROVIDERS: Physician Assistant; Emergency Provider Emergency Medicine; PCP Internal Medicine
DX: M79.671 Pain in right foot (principal); M79.672 Pain in left foot; R60.0 Localized edema; R06.02 Shortness of breath; I25.10 Atherosclerotic heart disease of native coronary artery without angina pectoris; Z79.899 Other long term (current) drug therapy
CPT/HCPCS: 36415; 80048; 80076; 83880; 85025; 85610; 93925; 93970; 99282; 99284

== ENCOUNTER 2023-08-04 14:49 | Outpatient (REF) | payer MEDICARE, MEDICAID, SELFPAY ==
--- NOTE | ~2023-08-04 | XR_ITS ---
EXAMINATION: XR chest 2V CLINICAL INFORMATION: Reason for Exam G47.33 - Obstructive sleep apnea (adult) (pediatric) COMPARISON: None TECHNIQUE: 2 views of the chest FINDINGS: Clear lungs. No pneumothorax or pleural effusion. Borderline enlarged cardiac silhouette. Mediastinal clips and median sternotomy wires are noted. XR/XR chest 2V Impression: * Clear lungs.
== END 2023-08-04 14:50 | disposition home or self-care (01) ==
LOC: HO.XRAY 14:49
PROVIDERS: PCP Internal Medicine; Visit Provider Hospitalist
DX: R06.09 Other forms of dyspnea (principal); G47.33 Obstructive sleep apnea (adult) (pediatric)
CPT/HCPCS: 71046; 99202

== ENCOUNTER 2023-08-04 14:49 | Outpatient (AMB) | payer MEDICARE, MEDICAID, SELFPAY ==
[2023-08-04 14:57] VITALS: BP 110/60; PULSE 73; O2SAT 97; BMI 26.9
--- NOTE | 2023-08-04 14:57 | MHC.OFFVIS ---
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 The patient is a 68-year-old gentleman who presents with worsening shortness of breath with activity. The patient states that the symptoms have been progressively getting worse. Primarily with going up flight of stairs or an incline. Moderate severity. The patient does not use any respiratory inhalers. He denies any history obstructive airway disease. In addition to that he does complain of significant daytime drowsiness. He does snore. The patient has that apneic episodes. His Glynn score is elevated 10/24. The patient has not had any type of sleep studies in the past. Will go ahead and request a home sleep study at this time. The patient will undergo a chest x-ray PFTs in addition to his sleep study and then will review them when he comes back for follow-up visit. [facility] Medical History (Updated 08/06/23 @ 21:34 by Smith Rogers MD) TREVOR (obstructive sleep apnea) Dyspnea Social History Patient Tobacco Use Status: Never used Tobacco Review of Systems Const Reports daytime sleepiness, Reports snoring and Reports stops breathing during sleep ENT Reports no additional complaints Card Denies chest pain and Reports dyspnea on exertion Resp Reports dyspnea on exertion, Reports snoring and Reports wheezing GI Reports no additional complaints Musc Reports myalgias Skin/Breast Denies rash Neuro Reports no additional complaints Donald/Lymph Denies lymphadenopathy Aller/Immun Reports wheezing Physical Exam Vital Signs: Last Vital Signs Pulse 73 08/04/23 14:57 BP 110/60 08/04/23 14:57 Pulse Ox 97 08/04/23 14:57 Oxygen Delivery Method Room Air 08/04/23 14:57 BMI result Body Mass Index 26.9 Const General: comfortable HEENT Head: Yes normocephalic Neck Neck: Yes supple Chest Chest palpation & inspection: normal inspection of the chest Resp Effort & Inspection: normal respiratory effort Auscultation: clear to auscultation bilaterally Cardio Heart sounds: S1 normal heart sound present and S2 normal heart sound present GI Palpation (GI): Soft to palpation Skin General skin exam: no rashes or lesions noted Extrem General: Yes no clubbing, cyanosis or edema Assessment & Plan Assessment & Plan (1) TREVOR (obstructive sleep apnea): Code(s): G47.33 - Obstructive sleep apnea (adult) (pediatric) (2) Dyspnea: Code(s): R06.00 - Dyspnea, unspecified Qualifiers: Dyspnea type: dyspnea on exertion Qualified Code(s): R06.09 - Other forms of dyspnea Plan PFTs CXR Home PSG F/U 8-12 weeks Orders: Orders PFT pulmonary function test 08/04/23 R06.00 - Dyspnea, unspecified XR chest 2V 08/04/23 G47.33 - Obstructive sleep apnea (adult) (pediatric), R06.00 - Dyspnea, unspecified RT home sleep study 08/04/23 G47.33 - Obstructive sleep apnea (adult) (pediatric) Coding Level of Care Code New Pt Level 4 (30671) Diagnoses TREVOR (obstructive sleep apnea) G47.33 Dyspnea on exertion R06.09 Dyspnea type: dyspnea on exertion Time Spent (min) 38
== END 2023-08-04 15:27 | disposition home or self-care (01) ==
PROVIDERS: PCP Internal Medicine; Visit Provider Hospitalist
DX: G47.33 Obstructive sleep apnea (adult) (pediatric) (principal); R06.09 Other forms of dyspnea
CPT/HCPCS: 99204

== ENCOUNTER 2023-08-12 16:00 | Emergency (ER) | payer MEDICARE, MEDICAID, SELFPAY ==
[2023-08-12 16:13] VITALS: BP 95/64; PULSE 80; RESP 20; TEMP 35.9; O2SAT 96; BMI 26.9
--- NOTE | 2023-08-12 16:14 | ED_ITS ---
HPI - General Adult General Chief complaint: General Medical Stated complaint: Feet pain Time Seen by Provider: 08/12/23 16:53 Source: patient Mode of arrival: ambulatory Limitations: no limitations History of Present Illness HPI narrative: Patient is a 68 year old assigned male at with a history of CABG presenting to the emergency department today with concerns his feet are not circulating well enough. Patient states that over the last few weeks he has been having episodes of his hands and feet becoming very cold and pale, then they are rubbed and circulation is regained. Patient states that he was here a couple weeks ago and had labs and US done and everything is OK but he can't get into the vascular surgeon until August. Patient denies any dizziness, lightheadedness, abdominal pain, nausea, vomiting, fever, chills, blurry vision, double vision, loss of vision, chest pain, difficulty breathing, shortness of breath, back pain, night sweats, pain with urination, increased urinary frequency, increased urinary urgency, blood in his urine or stool, syncope or a near syncopal episode, recent trauma or falls, bowel incontinence, bladder incontinence, bowel retention, bladder retention, or any other complaints at this time. Onset (ago): week(s) Location: upper extremity and lower extremity Pain Consistency: intermittent Relieving factors: none Exacerbating factors: none Associated symptoms: denies other symptoms Treatments prior to arrival: none Related Data Home Medications Medication Instructions Recorded Confirmed acetaminophen 325 mg tablet 325 mg PO QID PRN 08/04/23 (Tylenol) aspirin 81 mg tablet,delayed 81 mg PO DAILY 08/04/23 release metoprolol succinate 25 mg 25 mg PO DAILY 08/04/23 tablet,extended release 24 hr Allergies Allergy/AdvReac Type Severity Reaction Status Date / Time No Known Allergies Allergy Verified 08/12/23 16:17 Review of Systems Constitutional: Constitutional: Reports no additional constitutional complaints, Denies chills, Denies fever(s) and Denies night sweats Eyes: Eyes: Reports no additional eye complaints, Denies blurry vision, Denies change in vision, Denies diplopia, Denies eye discharge, Denies loss of vision and Denies eye pain ENT: Denies dizziness Cardiovascular: Cardiovascular: Reports no additional cardiovascular complaints, Denies chest pain, Denies lightheadedness, Denies Loss of Consciousness and Denies dyspnea Respiratory: Respiratory: Reports no additional respiratory complaints and Denies dyspnea Gastrointestinal: Gastrointestinal: Reports no additional gastrointestinal complaints, Denies abdominal pain, Denies melena, Denies hematochezia, Denies change in bowel habits and Denies change in stool character Genitourinary: Genitourinary: Reports no additional male genitourinary complaints, Denies hematuria, Denies oliguria, Denies difficulty urinating, Denies dysuria, Denies urinary frequency, Denies urinary hesitancy, Denies urinary incontinence and Denies urinary urgency Musculoskeletal: Musculoskeletal: Reports no additional musculoskeletal complaints, Denies numbness and Denies tingling Comments: intermittent cold and paleness of the bilateral hands and feet Neurologic: Denies dizziness, Denies loss of vision, Denies numbness and Denies tingling Psychiatric: Psychiatric: Reports no additional psychiatric complaints Endocrine: Endocrine: Reports no additional endocrine complaints Hematologic/Lymphatic: Hematologic/Lymphatic: Reports no additional hematologic/lymphatic complaints Allergic/Immunologic: Allergic/Immunologic: Reports no additional allergic/immunologic complaints PMFSH Past Medical History Attestation statement: The following information was validated with the patient. Source: old records reviewed and nursing notes reviewed Medical History TREVOR (obstructive sleep apnea) Dyspnea Social History Social History Patient Tobacco Use Status: Never used Tobacco Advance Directives: No Advance Directives Information Provided: No Physical Exam ED Vital Signs: Vital Signs - 24 hr 08/12/23 16:13 Temperature 96.6 F L Pulse Rate 80 Respiratory Rate 20 Blood Pressure 95/64 Pulse Oximetry 96 Oxygen Delivery Method Room Air BMI result Body Mass Index 26.9 Const General: cooperative, no acute distress, alert and awake Nutritional Appearance: well nourished Orientation/consciousness: patient oriented x3 Limitations: no limitations HENMT Head: Yes normal to inspection and Yes atraumatic Ears: hearing grossly normal bilaterally and external ears normal General nose exam: Normal external nose present, no nasal discharge noted and no epistaxis Face and sinus: Yes normal facial exam, No abrasion and No laceration Mouth: Normal oral and palatal mucosa present, no drooling and no muffled voice Eyes General: appearance normal, both eyes and all related structures Periorbital: periorbital findings normal Eyelids: Yes eyelids normal Conjunctivae: conjunctivae normal Pupils: Equal, round and reactive pupils present EOM: EOMs intact bilaterally Neck Neck: Yes normal visual inspection, Yes full ROM and Yes no lymphadenopathy Chest Chest palpation & inspection: normal inspection of the chest Resp Effort & Inspection: normal respiratory effort and able to speak in complete sentences GI Inspection: Yes normal to inspection Neuro General: patient oriented x3 and moves all extremities Cranial nerves: Yes Equal, round and reactive pupils present Cognition (Neuro): normal cognition Motor exam (neuro): 5/5 motor strength present throughout Sensory Exam: Normal double simultaneous stimulation for sensation Coordination: [id number] test normal Extrem General: Yes normal to inspection, Yes full ROM and Yes capillary refill normal Psych Appearance: grossly normal Mental Status: mental status grossly normal Affect: normal affect Attitude: cooperative Thought process: Normal thought process present Thought content: Normal thought content present Insight: Good insight present (Psych) Course Course Course Narrative: This is an RME: Additional HPI, ROS, PE not included below will be deferred to primary provider. Patient is a 60 year male who presents to the emergency department reporting increased pain and swelling to bilateral feet. Reports being seen here a few weeks ago with similar symptoms but has progressively worsened. He was referred to a vascular doctor and Podiatry, but appointment is 1 month away. concerned about circulation. 2+ DP/PT pulse bilaterally, generalized blanchable erythema Medical Decision Making Medical Decision Making MDM Narrative: Patient is a 68 year old assigned male at with a history of CABG presenting to the emergency department today with intermittent bilateral hand and feet coldness and paleness. Patient's physical exam was unremarkable. Patient's pulses were present and strong, including his bilateral radial and dorsalis pedis pulses. I educated the patient on how to check these. Patient's capillary refill was brisk in all appendages. Patient then said his bilateral great toes hurt. Patient was offered Toradol but was unsure if he wanted it or not. I explained my physical exam findings to the patient. I answered all questions asked by the patient. I spent an extensive amount of time thoroughly explaining to the patient that his limbs are not ischemic and he is not going to have any parts of him and fall off . Patient expressed multiple times that it is normal for his blood pressure to be low and he does not want any kind of fluid supplementation. I stressed the importance of the patient taking his medication as prescribed. I stressed the importance of the patient following up with his primary care provider and his vascular surgeon. I stressed the import ance of the patient returning to the emergency department immediately if his symptoms were to worsen or if he were to develop any dizziness, shortness of breath, difficulty breathing, chest pain, blurry vision, loss of vision, nausea, vomiting, abdominal pain, fever, chills, back pain, or any other complaints. Patient verbalized agreement and understanding with this treatment plan and discharge. Differential Diagnosis Differential Diagnoses: The differential diagnosis associated with the presentation includes Raynaud's Intermittent claudication Anxiety Hypotension Admission/Observation Consideration of admission/observation: Escalation of care including adm ission/observation considered Patient would have been admitted to the hospital had his clinical presentation warranted hospital admission. Tests considered The following testing was considered but not selected: CBC, CMP, and US / CT were considered however, the patient's clinical presentation did not warrant these things at this time. I explained this to the patient who verbalized understanding and agreement. Discharge Plan Discharge Clinical Impression: Raynaud's disease Patient Disposition: Home, Self-Care Instructions: Raynaud Disease (ED) Additional Instructions: Follow up with your primary care provider and your vascular surgeon. Please take your gabapentin as prescribed. This will help with your feet pain. Your feet both have excellent dorsalis pedis pulses (the pulse we helped you feel on the tops of your feet). This means your feet are not dying and are getting appropriate circulation. Continue to keep your hands and as warm as possible. Return to the emergency department immediately if your symptoms worsen or if you develop any dizziness, shortness of breath, difficulty breathing, chest pain, blurry vision, loss of vision, nausea, vomiting, abdominal pain, fever, chills, back pain, or any other complaints. Prescriptions: No Action metoprolol succinate 25 mg tablet extended release 24 hr 25 mg PO DAILY aspirin 81 mg tablet,delayed release (DR/EC) 81 mg PO DAILY acetaminophen [Tylenol] 325 mg tablet 325 mg PO QID PRN Referrals: Adan Walsh MD [Primary Care Provider] - Arvin Parra MD [Physician] - (Please follow up with the vascular surgeon as scheduled. ) Print Language: Luxembourgish
[2023-08-12] MEDS: Ketorolac Tromethamine 15 MG/ML VIAL IM (19:16)
== END 2023-08-12 19:23 | disposition home or self-care (01) ==
PROVIDERS: Emergency Provider Emergency Medicine; PCP Internal Medicine
DX: I73.00 Raynaud's syndrome without gangrene (principal); Z79.82 Long term (current) use of aspirin
CPT/HCPCS: 96372; 99283; 99284; J1885

== ENCOUNTER 2023-08-17 10:15 | Emergency (ER) | payer MEDICARE, MEDICAID, SELFPAY ==
[2023-08-17] VITALS (7 sets, daily range): BP systolic 96–121; BP diastolic 53–69; PULSE 59–78; RESP 12–19; TEMP 36.4–36.7; O2SAT 95–100; BMI 26.9
--- NOTE | ~2023-08-17 | XR_ITS ---
EXAMINATION: XR CHEST CLINICAL INFORMATION: Shortness of breath. COMPARISON: Most recent chest radiographs dated 08/04/2023. TECHNIQUE: Frontal view of the chest was obtained. FINDINGS: No airspace consolidation. No pleural effusion or pneumothorax. Stable cardiac mediastinal silhouette. Redemonstration of sternal wires. XR/XR chest 1V IMPRESSION: No acute cardiopulmonary findings.
--- NOTE | 2023-08-17 10:21 | ECG_ITS ---
Test Reason : SOB Blood Pressure : / mmHG Vent. Rate : 063 BPM Atrial Rate : 063 BPM P-R Int : 158 ms QRS Dur : 092 ms QT Int : 404 ms P-R-T Axes : 068 048 058 degrees QTc Int : 413 ms Normal sinus rhythm Normal ECG When compared with ECG of 27-FEB-2015 00:26, No significant change was found Referred By: Juliann Nicholson Electronically Signed By:Lupillo Garcia
[2023-08-17 10:31] LABS: MANUAL DIFF FLAG NO
[2023-08-17 10:32] LABS: Basophils Percent Auto 0.4 % (0-2); Eosinophils Percent Auto 0.7 % (0-4); Hematocrit 40.6 % (42.0-52.0); Hemoglobin 13.8 g/dl (14.0-18.0); Imm Gran Abs Auto 0.01 X10*3/uL (0.00-0.03); Imm Gran Pct Auto 0.2 % (0.0-0.4); Lymphocytes Absolute Auto 1.5 X10*3/uL (1.2-4.9); Lymphocytes Percent Auto 27.1 % (20-40); Mean Corpuscular Hemoglobin 30.9 pg (27.0-33.0); Mean Platelet Volume 9.4 fL (9.4-12.4); Monocytes Absolute Auto 0.4 X10*3/uL (0.1-1.2); Monocytes Percent Auto 6.3 % (2-11); Neutrophils Absolute Auto 3.6 x10*3/uL (2.0-8.3); Neutrophils Percent Auto 65.3 % (45-73); Platelet Count 213 X10*3/uL (160-400); Red Blood Count 4.46 X10*6/uL (4.60-5.80); Red Cell Distribution Width 12.1 % (11.0-16.0); White Blood Count 5.5 X10*3/uL (4.8-10.8)
--- NOTE | 2023-08-17 10:34 | ED.SOB ---
HPI - SOB/Dyspnea General Chief Complaint: Dyspnea Stated Complaint: SOB X 1 MONTH, WORSE TODAY Time Seen by Provider: 08/17/23 10:24 Source: patient Mode of arrival: ambulatory Limitations: no limitations History of Present Illness HPI Narrative: 68-year-old male came in for evaluation of dyspnea for 1 month on and off. Patient been having intermittent dyspnea that can happen with exertion and during rest for the past month patient declined any PND, no lower extremity swelling or tenderness. Patient also is complaining of right big to change color especially at nighttime patient has been evaluated for same symptoms in the emergency department twice patient was advised to follow-up with vascular surgeon which she has an appointment with Dr. Parra on 09/06. Patient fell to be anxious. Related Data Home Medications Medication Instructions Recorded Confirmed acetaminophen 325 mg tablet 325 mg PO QID PRN 08/04/23 (Tylenol) aspirin 81 mg tablet,delayed 81 mg PO DAILY 08/04/23 release metoprolol succinate 25 mg 25 mg PO DAILY 08/04/23 tablet,extended release 24 hr Allergies Allergy/AdvReac Type Severity Reaction Status Date / Time No Known Allergies Allergy Verified 08/12/23 16:17 Review of Systems Review of Systems: all other systems are reviewed and are negative Constitutional: Reports as per HPI and Reports no additional constitutional complaints Eyes: Reports as per HPI and Reports no additional eye complaints Reports system reviewed and no additional complaints, except as documented Cardiovascular: Reports as per HPI and Reports no additional cardiovascular complaints Respiratory: Reports as per HPI and Reports no additional respiratory complaints Gastrointestinal: Reports as per HPI and Reports no additional gastrointestinal complaints Genitourinary: Reports no additional female genitourinary complaints Musculoskeletal: Reports no additional musculoskeletal complaints Skin/Breast: Reports system reviewed and no additional complaints, except as docu Psychiatric: Reports no additional psychiatric complaints Endocrine: Reports no additional endocrine complaints Hematologic/Lymphatic: Reports no additional hematologic/lymphatic complaints Allergic/Immunologic: Reports no additional allergic/immunologic complaints Reports system reviewed and no additional complaints, except as documented and Reports Abnormal speech present [facility] Past Medical History Medical History TREVOR (obstructive sleep apnea) Dyspnea Social History Social History Patient Tobacco Use Status: Never used Tobacco Use of substances other than those prescribed or required for medical reasons: No Advance Directives: No Physical Exam Vital Signs: Vital Signs: Last Vital Signs Temp 97.6 F 08/17/23 10:33 Pulse 72 08/17/23 10:33 Resp 17 08/17/23 10:33 BP 121/62 08/17/23 10:33 Pulse Ox 95 08/17/23 10:33 O2 Del Method Room Air 08/17/23 10:33 BMI result Body Mass Index 26.9 Vital signs have been reviewed and appear to be correct. Blood pressure elevated. Heart rate normal. Respiratory rate normal. Temperature normal. Oxygen saturation normal. Appearance: anxious, Alert. Oriented X3. No acute distress. Head: Normal external exam. Normocephalic. Atraumatic. No Smith signs noted. No raccoon eyes noted Eyes: PERRLA. EOMI. Conjunctiva and sclera normal. Eyelids normal. ENT: TM's Normal. Pharynx normal. Uvula midline. Moist mucous membranes. No trismus noted. No drooling noted. No muffled voice noted. Neck: Normal inspection. Neck supple. FROM. No adenopathy. Thyroid Normal. No meningeal signs. No neck mass noted. CVS: Normal heart rate and rhythm. Heart sound normal. No murmurs noted. Pulses normal throughout. Respiratory: No respiratory distress. Painless inspiration. Breath sounds normal. No wheezes/rales/rhonchi noted. Chest nontender. No accessory muscle usage noted or decreased air movement noted. Abdomen: Soft and nontender. Bowel sounds normal in all 4 quadrants. No distention noted. No organomegaly noted. No visible injury noted. Back: No CVA tenderness. Full range of motion noted. Skin: Skin warm and dry. Normal skin color. Normal skin turgor. No rashes/lesions/lacerations noted. Extremities: bilateral feet are warm, no discoloration, with palpable PT/DP bilaterally, no sign of edema for infection. Neuro: Oriented X 3. Cranial nerve exam: II-XII are grossly intact No motor deficit. No sensory deficit. Reflexes normal. Course Reevaluation(s) Reevaluation #1: 68-year-old male s/p CABG came in for evaluation of multiple complaints, patient has unremarkable workup, patient is mainly concern of is bilateral big toe pain with the cold weather, patient did online search for his symptoms and [employer] suggested that he may have peripheral vascular disease in his lower extremities bilaterally, patient has no acute ischemic change, and has already an appointment with Dr. Parra for vascular consultation in 3 weeks. Time: 11:20 Medical Decision Making Differential Diagnosis Differential Diagnoses: The differential diagnosis associated with the presentation includes ( Pneumonia, pneumothorax, CHF, ACS, peripheral vascular ischemic changes, electrolyte abnormality, severe anemia.) Admission/Observation Consideration of admission/observation: Escalation of care including admission/observation considered Lab Data MDM Lab Attestation statement: I reviewed the patient's lab results. 08/17/23 10:27 08/17/23 10: Labs: Lab Results 08/17/23 Range/Units 10:27 WBC 5.5 (4.8-10.8) X10*3/uL RBC 4.46 L (4.60-5.80) X10*6/uL Hgb 13.8 L (14.0-18.0) g/dl Hct 40.6 L (42.0-52.0) % MCV 91.0 (80.0-98.0) fL MCH 30.9 (27.0-33.0) pg MCHC 34.0 (31.0-36.0) g/dl RDW 12.1 (11.0-16.0) % Plt Count 213 (160-400) X10*3/uL MPV 9.4 (9.4-12.4) fL Immature Gran % (Auto) 0.2 (0.0-0.4) % Neut % (Auto) 65.3 (45-73) % Lymph % (Auto) 27.1 (20-40) % Yancey % (Auto) 6.3 (2-11) % Eos % (Auto) 0.7 (0-4) % Baso % (Auto) 0.4 (0-2) % Lymph # (Auto) 1.5 (1.2-4.9) X10*3/uL Yancey # (Auto) 0.4 (0.1-1.2) X10*3/uL Eos # (Auto) 0.0 (0.0-0.4) X10*3/uL Baso # (Auto) 0.0 (0.0-0.2) X10*3/uL Abs Immat Gran (auto) 0.01 (0.00-0.03) X10*3/uL Absolute Neuts (auto) 3.6 (2.0-8.3) x10*3/uL Absolute Nucleated RBC 0.000 (0.0-0.012) X10*3/uL Nucleated RBC % (auto) 0.0 (0.0-0.2) /100WBC Sodium 142 (135-145) mmol/L Potassium 4.3 (3.3-5.1) mmol/L Chloride 105 (96-108) mmol/L Carbon Dioxide 30 H (22-29) mmol/L Anion Gap 11 L (12-20) BUN 20 H (9-16) mg/dL Creatinine 0.93 (0.5-1.4) mg/dL Estim Creat Clear Calc 83.4 Estimated GFR > 60 Random Glucose 139 H (60-115) mg/dL Calcium 9.5 (8.4-10.2) mg/dL Total Bilirubin 1.6 H (0.0-1.0) mg/dL Direct Bilirubin 0.4 (0.0-0.5) mg/dL AST 27 (5-37) U/L ALT 22 (0-40) U/L Alkaline Phosphatase 72 (39-117) U/L Troponin I High Sens 4.3 (<3.5-35.0) ng/L B-Natriuretic Peptide 34 (<100) pg/mL Total Protein 6.7 (6.5-8.0) g/dL Albumin 4.2 (3.5-5.0) g/dL Lipase 29 (8-78) U/L Influenza Type A (PCR) NEGATIVE (Negative) Influenza Type B (PCR) NEGATIVE (Negative) RSV RNA Qual (PCR) NEGATIVE (Negative) SARS-CoV-2 RNA (RT-PCR) NEGATIVE (Negative) Independent Interpretation I performed an independent interpretation of an: Plain X-Ray ( chest: Clear lungs.) Radiology Impression Discussion of test interpretation with radiology: I have reviewed the radiologist's reading. Discharge Plan Discharge Clinical Impression: Dyspnea Patient Disposition: Home, Self-Care Instructions: Dyspnea (ED) Prescriptions: No Action metoprolol succinate 25 mg tablet extended release 24 hr 25 mg PO DAILY aspirin 81 mg tablet,delayed release (DR/EC) 81 mg PO DAILY acetaminophen [Tylenol] 325 mg tablet 325 mg PO QID PRN Referrals: Croke,Adan, MD [Primary Care Provider] - Arvin Parra MD [Physician] -
--- NOTE | 2023-08-17 10:39 | PC.NURSE ---
PT C/O ALYSON FOOT PAIN ESPECIALLY R GREAT TOE. PT SEEN BY DR. BAPTISTE. PT AWARE OF PLAN OF CARE.
[2023-08-17 10:46] LABS: Alanine Aminotransferase 22 U/L (0-40); Albumin Level 4.2 g/dL (3.5-5.0); Alkaline Phosphatase 72 U/L (39-117); Anion Gap 11 (12-20); Aspartate Amino Transferase 27 U/L (5-37); Bilirubin Direct 0.4 mg/dL (0.0-0.5); Bilirubin Total 1.6 mg/dL (0.0-1.0); Blood Urea Nitrogen 20 mg/dL (9-16); Calcium 9.5 mg/dL (8.4-10.2); Carbon Dioxide 30 mmol/L (22-29); Chloride 105 mmol/L (96-108); Creatinine Clr Calc Pharmacy 83.4; Estimated Glomerular Filt Rate > 60; Glucose Random 139 mg/dL (60-115); Lipase 29 U/L (8-78); Potassium 4.3 mmol/L (3.3-5.1); Sodium 142 mmol/L (135-145); Total Protein 6.7 g/dL (6.5-8.0)
[2023-08-17 10:51] LABS: Troponin-I High Sensitivity 4.3 ng/L (<3.5-35.0)
[2023-08-17 11:12] LABS: B Type Natriuretic Peptide 34 pg/mL (<100); Influenza A PCR NEGATIVE (Negative); Influenza B PCR NEGATIVE (Negative); Resp Syncy Virus RNA Qual PCR NEGATIVE (Negative); SARS COV2 PCR INHOUSE NEGATIVE (Negative)
[2023-08-17] MEDS: Albuterol Sulfate 90 MCG 8 GM INHALER 2 PUFF INHALE (14:09)
== END 2023-08-17 15:39 | disposition home or self-care (01) ==
PROVIDERS: Physician Assistant Medical; Emergency Provider Emergency Medicine; PCP Internal Medicine
DX: R06.00 Dyspnea, unspecified (principal); M79.675 Pain in left toe(s); M79.674 Pain in right toe(s); Z11.52 Encounter for screening for COVID-19; Z20.828 Contact with and (suspected) exposure to other viral communicable diseases; Z95.1 Presence of aortocoronary bypass graft
CPT/HCPCS: 0241U; 36415; 71045; 80053; 82248; 83690; 83880; 84484; 85025; 93005; 94640; 99284; 99285

== ENCOUNTER → 2023-08-17 10:21 | Outpatient (BNV) | payer MEDICARE, MEDICAID, SELFPAY | PROVIDERS: Emergency Provider Emergency Medicine; PCP Internal Medicine; Visit Provider Internal Medicine Cardiovascular Disease | DX: R06.02 Shortness of breath (principal) | CPT/HCPCS: 93010 ==

== ENCOUNTER 2023-09-06 11:05 | Outpatient (AMB) | payer MEDICARE, MEDICAID, SELFPAY ==
--- NOTE | 2023-09-06 11:20 | A.OFFVIS_ITS ---
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 Started a few months ago. Pt states he has discoloration and swelling, worsens throughout the day. Bottom of the feet are red. Pt was in the ED a few weeks ago and they did a R/O DVT and an Arterial US. Pt states when he lays down he gets dizziness. 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 He reports that he is having difficulty with his lower ext remities in particular bilateral great toes and the plantar aspect underneath his metatarsal head. He actually presented to the emergency room with concerns about his feet not circulating well enough. He has no difficulty ambulating. He is a nonsmoker nondiabetic. He does have a history of coronary artery disease with a CABG. Did have right great saphenous vein harvest. He now presents to us for vascular evaluation. [facility] Medical History TREVOR (obstructive sleep apnea) Dyspnea Social History Patient Tobacco Use Status: Never used Tobacco Review of Systems Const All systems reviewed & are unremarkable except as noted in HPI and below Reports no additional complaints ENT Reports Normal hearing present Card Denies chest pain, Denies chest pain at rest, Denies chest pain with activity and Denies pedal edema Resp Denies cough GI Denies abdominal pain Musc Denies abnormal gait, Denies muscle cramps and Denies radiating pain into limb Skin/Breast Denies skin ulcer and Denies wounds Neuro Reports Normal hearing present and Denies abnormal gait Psych Reports no additional complaints Physical Exam Const General: cooperative, healthy appearing and comfortable Orientation/consciousness: oriented to person, oriented to place and oriented to time HEENT Head: Yes normal to inspection Neck Neck: Yes normal visual inspection Carotids: no bruits Chest Chest palpation & inspection: normal inspection of the chest Resp Effort & Inspection: normal respiratory effort and able to speak in complete sentences Auscultation: clear to auscultation bilaterally, no crackles, no rales, no rhonchi and no wheezes Cardio Other: Bounding palpable bilateral dorsalis pedis pulses Rate: regular rate Rhythm: regular rhythm Heart sounds: S1 normal heart sound present and S2 normal heart sound present Bruits: no carotid bruits Peripheral pulses: Peripheral pulses 2+ throughout GI Inspection: Yes normal to inspection Skin Other: No ulcers no wounds Wounds: no wounds Hair: normal Neuro General: oriented to person, oriented to place and oriented to time Cranial nerves: Yes CN's II-XII intact bilaterally and Yes Normal hearing present Cognition (Neuro): normal cognition Motor exam (neuro): 5/5 motor strength present throughout Extrem Other: venous exam: No significant superficial varicosities or spider telangiectasias, minimal edema General: No clubbing, No cyanosis and No edema Psych Appearance: grossly normal Mental Status: mental status grossly normal Speech and movement: Normal speech and movement present Results Reviewed Results Reviewed: Arterial testing from 07/26/2023 demonstrates normal arterial flow. Venous duplex from 07/26/2023 is negative for DVT. Assessment & Plan Assessment & Plan (1) Foot pain, bilateral: Code(s): M79.671 - Pain in right foot; M79.672 - Pain in left foot Plan: In short patient has bilateral lower extremity foot pain. This is not vascular in nature as he does have normal palpable arterial pulses in venous testing has shown to be negative. I provided him a fair amount of reassurance that this is not vascular and he does not have any of the risk factors that a typical vascular patient would. I do think he may benefit from a podiatric evaluation. He will follow up with us on an as-needed basis. Thank you for allowing us to assist in his care. If there are any questions or concerns please do not hesitate to contact us. Coding Level of Care Code New Pt Level 4 (75837) Diagnoses Foot pain, bilateral M79.671; M79.672
== END 2023-09-06 11:47 | disposition home or self-care (01) ==
PROVIDERS: PCP Internal Medicine; Visit Provider Surgery Vascular Surgery
DX: M79.671 Pain in right foot (principal); M79.672 Pain in left foot
CPT/HCPCS: 99203

== ENCOUNTER → 2023-09-06 11:05 | Outpatient (BNVA) | payer MEDICARE, MEDICAID, SELFPAY | PROVIDERS: PCP Internal Medicine; Visit Provider Surgery Vascular Surgery | DX: M79.671 Pain in right foot (principal); M79.672 Pain in left foot | CPT/HCPCS: 99202 ==